=== PATIENT | female | born 1990 | race Caucasian/White ===

== ENCOUNTER 2021-10-17 17:50 | Outpatient (REF) | payer OTHER, SELFPAY | END 2021-10-17 17:51 | disposition home or self-care (01) | LOC: LBN 17:50 | PROVIDERS: PCP Nurse Practitioner Family | DX: Z20.822 Contact with and (suspected) exposure to COVID-19 (principal) | CPT/HCPCS: U0003 ==

== ENCOUNTER 2022-04-21 01:38 | Outpatient (CLI) | payer OTHER, SELFPAY ==
[2022-04-21 15:06] LABS: Abs Immature Grans 0.03 10^3/uL (0.0-0.06); Absolute Basophil Count 0.02 10^3/uL (0.0-0.2); Absolute Eosinophil Count 0.04 10^3/uL (0.0-0.7); Absolute Lymphocyte Count 1.99 10^3/uL (1.2-3.4); Absolute Monocyte Count 0.47 10^3/uL (0.1-0.8); Absolute Neutrophil Count 4.75 10^3/uL (1.2-6.7); Basophils % 0.3; Eosinophils % 0.5; HCT 37.3 % (36.0-46.0); HGB 13.1 g/dL (11.2-15.7); Immature Grans % 0.4; Lymphocytes % 27.3; MCH 32.3 pg (27.0-33.0); MCHC 35.1 % (32.0-36.0); MCV 92 fL (80-95); MPV 9.6 fL (8.0-11.0); Monocytes % 6.4; Neutrophils % 65.1; Platelet Count 208 10^3/uL (130-400); RBC 4.06 10^6/uL (3.93-5.22); RDW 13.7 % (11.7-14.6); RDW-SD 46.3 fL
[2022-04-24 10:49] LABS: Hepatitis B Surface Ag Negative (Negative)
[2022-04-24 11:17] LABS: Hepatitis C Ab w Rflx HCV PCR Negative (Negative)
[2022-04-24 11:33] LABS: HIV-1/2 Ag & Ab Screen Negative (Negative)
[2022-04-24 11:44] LABS: Varicella IgG Antibody Positive (See Note)
[2022-04-24 11:55] LABS: Rubella IgG Ab (UVM) Positive (See Note)
[2022-04-25 15:16] LABS: Syphilis IgG w/Reflex Nonreactive (Nonreactive)
== END 2022-04-21 01:39 | disposition home or self-care (01) ==
LOC: LBO 01:39
PROVIDERS: Advanced Practice Midwife; PCP Nurse Practitioner Family; Visit Provider Advanced Practice Midwife
DX: Z34.91 Encounter for supervision of normal pregnancy, unspecified, first trimester (principal); Z3A.13 13 weeks gestation of pregnancy
CPT/HCPCS: 36415; 86787; 86803; 86850; 86900; 86901; 87340; 87389; 85025; 86762; 86780

== ENCOUNTER 2022-04-21 15:19 | Outpatient (REF) | payer OTHER, SELFPAY ==
[2022-04-21 17:09] LABS: *AMPHETAMINES SCREEN URINE Negative (Negative); *BARBITURATES SCREEN URINE Negative (Negative); *BENZODIAZEPINES SCREEN URINE Negative (Negative); Cannabinoids THC Negative (Negative); Cocaine Screen,Urine Negative (Negative); METHADONE URINE SCREEN Negative (Negative); OPIATES URINE SCREEN Negative (Negative)
[2022-04-21 17:10] LABS: Tricyclic Antidepressants Negative (Negative)
[2022-04-24 14:40] LABS: Chlamydia Result Negative (Negative); GC Result Negative (Negative)
[2022-04-27 14:57] LABS: Buprenorphine Negative ng/mL (Cutoff: 5.0); Norbuprenorphine Negative ng/mL (Cutoff: 2.5)
== END 2022-04-21 15:20 | disposition home or self-care (01) ==
LOC: LBN 15:19
PROVIDERS: PCP Nurse Practitioner Family; Visit Provider Advanced Practice Midwife
DX: Z34.91 Encounter for supervision of normal pregnancy, unspecified, first trimester (principal); Z3A.13 13 weeks gestation of pregnancy
CPT/HCPCS: 80307; 87491; 87591; 87086

== ENCOUNTER 2022-08-02 03:21 | Outpatient (CLI) | payer OTHER, SELFPAY ==
[2022-08-02 13:27] LABS: Abs Immature Grans 0.02 10^3/uL (0.0-0.06); Absolute Basophil Count 0.03 10^3/uL (0.0-0.2); Absolute Eosinophil Count 0.05 10^3/uL (0.0-0.7); Absolute Lymphocyte Count 1.32 10^3/uL (1.2-3.4); Absolute Monocyte Count 0.31 10^3/uL (0.1-0.8); Absolute Neutrophil Count 5.22 10^3/uL (1.2-6.7); Basophils % 0.4; Eosinophils % 0.7; HCT 35.2 % (36.0-46.0); HGB 11.9 g/dL (11.2-15.7); Immature Grans % 0.3; MCH 31.3 pg (27.0-33.0); MCHC 33.8 % (32.0-36.0); MCV 93 fL (80-95); MPV 9.8 fL (8.0-11.0); Monocytes % 4.5; Neutrophils % 75.1; Platelet Count 195 10^3/uL (130-400); RDW 12.7 % (11.7-14.6); RDW-SD 42.5 fL; WBC 6.95 10^3/uL (4.4-10.8)
[2022-08-02 13:37] LABS: Glucose,1 Hr (Glucola) 120 mg/dL (80-140)
== END 2022-08-02 03:22 | disposition home or self-care (01) ==
LOC: LBO 03:21
PROVIDERS: Obstetrics & Gynecology; PCP Nurse Practitioner Family; Visit Provider Obstetrics & Gynecology Gynecology
DX: Z34.93 Encounter for supervision of normal pregnancy, unspecified, third trimester (principal); Z3A.28 28 weeks gestation of pregnancy
CPT/HCPCS: 36415; 82950; 86850; 86900; 86901; 85025

== ENCOUNTER 2022-09-01 00:38 | Outpatient (CLI) | payer OTHER, SELFPAY ==
--- NOTE | 2022-09-01 07:15 | DI.US_ITS ---
Exam(s) US OB TINA WEIGHT EXAM: US OB TINA WEIGHT CLINICAL HISTORY: Hx of covid in 1st trimester,z34.93. TECHNIQUE: Transabdominal obstetrical ultrasound performed. COMPARISON: US US OB 2-3 TRIMESTER from 06/02/2022 FINDINGS: Number of fetuses: 1 position: CEHALIC Placental location:There is a grade 2 posterior placenta. No evidence of previa. BIOMETRIC DATA: BPD: 8.25cm, 33weeks 1day HC: 29.65cm,32weeks 6days AC: 28.6cm,32weeks 4days FL: 6.21cm,32weeks 1day EFW:1,999.45g,4lb 7.28oz,35.1% Composite Age:32weeks 5days NANETTE:10/22/2022 Heart Rate: 128bpm Amniotic fluid index:10.05cm. Visually, amount of fluid is within normal limits. IMPRESSION: 1. Single live intrauterine gestation as above. 2. Estimated weight is 1999gms. This is the 35th percentile. 3. Amniotic fluid index is 10.1 cm. Visually within normal limits. DATA REPOSITORY:
== END 2022-09-01 00:58 ==
LOC: DI 00:39
PROVIDERS: PCP Nurse Practitioner Family; Visit Provider Obstetrics & Gynecology Gynecology
DX: Z34.93 Encounter for supervision of normal pregnancy, unspecified, third trimester (principal)
CPT/HCPCS: 76816

== ENCOUNTER 2022-10-02 15:12 | Outpatient (REF) | payer OTHER, SELFPAY ==
[2022-10-02 14:37] LABS: *AMPHETAMINES SCREEN URINE Negative (Negative); *BARBITURATES SCREEN URINE Negative (Negative); *BENZODIAZEPINES SCREEN URINE Negative (Negative); Cannabinoids THC Negative (Negative); Cocaine Screen,Urine Negative (Negative); METHADONE URINE SCREEN Negative (Negative); OPIATES URINE SCREEN Negative (Negative)
[2022-10-02 14:43] LABS: Tricyclic Antidepressants Negative (Negative)
[2022-10-05 11:10] LABS: Buprenorphine Negative ng/mL (Cutoff: 5.0); Norbuprenorphine Negative ng/mL (Cutoff: 2.5)
== END 2022-10-02 15:13 | disposition home or self-care (01) ==
LOC: LBN 15:12
PROVIDERS: PCP Nurse Practitioner Family; Visit Provider Obstetrics & Gynecology
DX: Z34.93 Encounter for supervision of normal pregnancy, unspecified, third trimester (principal)
CPT/HCPCS: 80307; 80348; 87081

== ENCOUNTER 2022-10-17 07:54 | Inpatient (IN) | payer OTHER, SELFPAY ==
[2022-10-17] VITALS (15 sets, daily range): BP systolic 109–126; BP diastolic 61–81; PULSE 72–88; RESP 16–18; TEMP 36.6–37
[2022-10-17 08:40] LABS: HCT 38.2 % (36.0-46.0); HGB 12.9 g/dL (11.2-15.7); MCH 30.4 pg (27.0-33.0); MCHC 33.8 % (32.0-36.0); MCV 90 fL (80-95); MPV 10.9 fL (8.0-11.0); Platelet Count 182 10^3/uL (130-400); RBC 4.24 10^6/uL (3.93-5.22); RDW 12.7 % (11.7-14.6); RDW-SD 41.4 fL; WBC 8.82 10^3/uL (4.4-10.8)
[2022-10-17 09:32] LABS: COVID-19 PCR Negative (Negative); Influenza A PCR Positive (Negative); Influenza B PCR Negative (Negative); RSV PCR Negative (Negative)
[2022-10-17 09:33] LABS: Source Nasopharynx
[2022-10-17] MEDS: Oxytocin 10 UNITS/ML VIAL IM (10:10)
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
--- NOTE | 2022-10-17 10:25 | W.OBDELIVERY ---
Date of service: 10/17/22 Time of Service: 10:26 OB Labor/ Delivery Information Baby A Delivery Delivery Method: Spontaneaous Presentation: Cephalic Cephalic Position: Vertex Vertex Position: Right Occipital Anterior Cord Description-Baby A: 3 Vessels Amniotic Fluid: Clear Estimated Blood Loss: 100 Delivery Outcome: Liveborn Note: Patient presenting at approximately 8:00 this morning after spontaneous rupture of membranes for clear fluid. She was initially found to be 5 cm dilated with a category 1 strip. Linda approximately every 3 minutes. She had normal course of labor and progressed to the point that she was completely dilated in hands and knees. She would maneuvered to side-lying position where she pushed the vertex over an intact perineum. There is no evidence of nuchal cord. Shoulders followed with ease. Three-vessel cord was noted clamped x2 and cut after delayed cord clamping and the infant was delivered directly to the mom's abdomen. Cord blood sample was obtained. Patient received 10 milliunits of IM Pitocin as she would prefer not to have an IV. Placenta delivered spontaneously and was found to be intact. There was no evidence of vaginal, or cervical laceration noted. Uterus is firm postdelivery. Both mom and baby are in stable condition after a total labor time of less than 3-1/2 hours. Providers Doctor: Etelvina Garcia Nurse: Fadumo Pham Nurse: Clarence Joseph Other: Lourdes Malave Labor/Delivery Information Number of Babies in Womb: 1 Steroids Given: None Reason Steroids Not Administered: N/A Group Beta Strep: Negative Antibiotics Administered: No Shoulder Dystocia: No Stages of Labor Onset of Labor Date: 10/17/22 Onset of Labor Time: 07:15 Complete Dilatation Date: 10/17/22 Complete Dilatation Time: 09:49 Labor - Stage 1 Duration: 2 hours and 34 minutes ROM Baby A: 10/17/22 ROM Baby A: 07:15 ROM Total Time- Baby A: [id number] Infant Delivery Date-Baby A: 10/17/22 Infant Delivery Time-Baby A: 10:08 Labor Stage 2 Duration: 19 minutes Placenta Delivery Date-Baby A: 10/17/22 Placenta Delivery Time-Baby A: 10:12 Labor-Stage 3 Duration: 4 minutes Total Length of Labor-Baby A: 2 hours and 53 minutes Placenta Status: Delivered Baby A Gender: Male Gestational Status: Term (39-41.6 wks) Gestational Age in Weeks/Days: 39 Weeks and 2 Days Score-1 Minute Interval(Baby A) Heart Rate-1 minute: 100 BPM or Greater Respiratory Effort- 1 minute: Spontaneous/Strong Cry Muscle Tone-1 minute: Active Movement Reflex Response-1 minute: Prompt Response Color-1 minute: Bluish Hands or Feet Total Score-1 minute: 9 Score-5 Minute Interval(Baby A) Heart Rate- 5 minute: 100 BPM or Greater Respiratory Effort-5 minute: Spontaneous/Strong Cry Muscle Tone-5 minute: Active Movement Reflex Response-5 minute: Prompt Response Color-5 minute: Bluish Hands or Feet Total Score- 5 minute: 9
[2022-10-17] MEDS: Acetaminophen 325 MG TAB 650 MG PO ×3 (12:11→23:15)
[2022-10-17] MEDS: Ibuprofen 600 MG TAB PO ×2 (12:12→18:14)
[2022-10-18] MEDS: Ibuprofen 600 MG TAB PO (04:28)
[2022-10-18 07:35] VITALS: BP 107/71; PULSE 78; RESP 16; TEMP 36.7; O2SAT 98
[2022-10-18 07:35] LABS: HCT 36.1 % (36.0-46.0); HGB 12.1 g/dL (11.2-15.7); MCH 30.2 pg (27.0-33.0); MCHC 33.5 % (32.0-36.0); MCV 90 fL (80-95); MPV 10.5 fL (8.0-11.0); Platelet Count 155 10^3/uL (130-400); RBC 4.01 10^6/uL (3.93-5.22); RDW-SD 42.5 fL; WBC 8.51 10^3/uL (4.4-10.8)
--- NOTE | 2022-10-18 08:01 | OBPPV_ITS ---
Date of service: 10/18/22 Time of Service: 08:01 Assessment and Plan Assessment and plan (1) Normal spontaneous vaginal delivery: Status: Acute Assessment and plan: day #1 status postnormal spontaneous vaginal delivery. Doing well. Discharge home today. (2) Influenza A: Status: Acute Assessment and plan: Influenza A positive. Symptomatic this morning. We will start Tamiflu and discharged home on such. Subjective Subjective Interval history: Patient seen and examined this morning. From an obstetric standpoint doing well. Bleeding is physiologic. Breast-feeding without difficulty. She is mildly symptomatic from her influenza A. At this point, we will start Tamiflu. She has been afebrile, though taking Motrin and Tylenol [id number]. She and her do desire circumcision for her today. Baby will receive Tylenol, informed consent obtained. [place] feeding status: Exclusively breast feeding Exam Physical Exam Vital signs: Temp Pulse Resp BP 98.1 F 73 16 114/72 10/17/22 23:14 10/17/22 23:14 10/17/22 23:14 10/17/22 23:14 HEENT Exam HEENT Exam: Normal Respiratory Exam Respiratory Exam: Normal Cardiovascular Exam Cardiovascular Exam: Normal Abdominal Exam Comments: Soft, nontender Fundal Exam Fundus: Below Umbilicus and Firm Extremities Exam Extremity Exam: Normal; negative Calf Tenderness Psychiatric Exam Psychiatric Exam: Normal Results Hemoglobin/Hematocrit: Hgb 12.1 g/dL (11.2-15.7) 10/18/22 07:22 Hct 36.1 % (36.0-46.0) 10/18/22 07:22 Abnormal Lab Findings: Abnormal Labs 10/17/22 08:32 Influenza Type A (PCR) Positive A
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
[2022-10-18] MEDS: Oseltamivir 75 MG CAP PO (09:18)
[2022-10-18] MEDS: Acetaminophen 325 MG TAB 650 MG PO (10:55)
[2022-10-18 12:25] VITALS: BP 95/63; PULSE 85; RESP 16; TEMP 36.6; O2SAT 98
== END 2022-10-18 13:35 | disposition home or self-care (01) | DRG 806 ==
PROVIDERS: Admitting Provider Obstetrics & Gynecology; PCP Nurse Practitioner Family; Visit Provider Obstetrics & Gynecology
DX: O80 Encounter for full-term uncomplicated delivery (principal); O98.52 Other viral diseases complicating childbirth; Z37.0 Single live birth; Z3A.39 39 weeks gestation of pregnancy; J10.1 Influenza due to other identified influenza virus with other respiratory manifestations; Z20.822 Contact with and (suspected) exposure to COVID-19
CPT/HCPCS: 36415; 85027; 86850; 86900; 86901; 87637; J2590